=== PATIENT | male | born 1935 | race Caucasian/White ===

== ENCOUNTER 2023-03-15 09:25 | Inpatient (IN) | payer MEDICARE, BC ==
[~2023-03-15] VITALS: Ht 160 cm; Wt 62.6 kg
[2023-03-15] MEDS ORDERED: ONDANSETRON 4 MG/2 ML VIAL IV ONE (09:30)
[2023-03-15] MEDS ORDERED: IV NORMAL SALINE 500 ML BAG IV ONE (09:30)
--- NOTE | 2023-03-15 09:30 | NUR ---
Pt states he doesn't take any medication and only takes vitamins.
--- NOTE | 2023-03-15 09:30 | NUR ---
BIB paramedics. pt. covered in bloody diarrhea and vomit changed into gown, VSS IV site insertion on L and R arm. EKG and covid swab collected sent to lab
[2023-03-15] MEDS ORDERED: ONDANSETRON 4 MG/2 ML VIAL ONE (09:45)
--- NOTE | 2023-03-15 10:07 | NUR ---
CT in process
[2023-03-15 10:09] LABS: HEMATOCRIT 33.1 % (36.7-47.1); MEAN CORPUSCULAR HEMOGLOBIN 30.6 uug (23.8-33.4); MEAN CORPUSCULAR VOLUME 92.9 fL (73.0-96.2); PLATELET COUNT (AUTO) 246 K/uL (152-348)
[2023-03-15 10:29] LABS: ALANINE AMINOTRANSFERASE 24 U/L (16-63); ALKALINE PHOSPHATASE 89 U/L (50-136); ASPARTATE AMINOTRANSFERASE 16 U/L (15-37); BILIRUBIN,DIRECT 0.2 mg/dL (0.0-0.2); BILIRUBIN,TOTAL 0.7 mg/dL (0.2-1.0); CARBON DIOXIDE 27 mmol/L (21-32); CHLORIDE 104 mmol/L (98-107); CREATININE 1.2 mg/dL (0.6-1.3); GLUCOSE 205 mg/dL (74-106); LIPASE 123 U/L (73-393); POTASSIUM 4.6 mmol/L (3.5-5.1); TOTAL PROTEIN, SERUM 6.6 g/dL (6.4-8.2); UREA NITROGEN, BLOOD 27 mg/dL (7-18)
[2023-03-15] MEDS ORDERED: PIPERACILLIN SODIUM/TAZOBACTAM 3.375 G in IV DEXTROSE 5% 50 ML IV ONE (11:30)
--- NOTE | 2023-03-15 11:32 | NUR ---
call panel awaiting for Dr. Mathur call back
[2023-03-15] MEDS ORDERED: PIPERACILLIN/TAZOBACTAM/D5W 50 ML IV ONE (11:38)
[2023-03-15] MEDS ORDERED: REMEDY ESSENTIAL ZINC PASTE 113 GM TP PRN (12:30)
[2023-03-15] MEDS ORDERED: MAGNESIUM HYDROXIDE 30 ML LIQUID UDC PO PRN (12:30)
[2023-03-15] MEDS ORDERED: ONDANSETRON 4 MG/2 ML VIAL IV PRN (12:30)
[2023-03-15] MEDS ORDERED: ACETAMINOPHEN 325 MG TABLET PO PRN (12:30)
--- NOTE | 2023-03-15 12:30 | NUR ---
Pt. admitted from ER and received report from ER nurse. Pt. is alert and oriented x4. Able to ambulate. Admitted for GI bleeding. Skin is clean and intact. Call light within reach. Normal breathing and no SOB noted. No c/o pain. Compliance with the care given. Will keep monitoring the patient.
--- NOTE | 2023-03-15 12:33 | NUR ---
urine collected and sent to lab
[2023-03-15 12:47] LABS: *BILIRUBIN,URIN NEGATIVE (NEGATIVE); *BLOOD, URINE 1+ (NEGATIVE); *CLARITY,URINE CLEAR (CLEAR); *COLOR,URINE YELLOW (YELLOW); *KETONES,URINE NEGATIVE (NEGATIVE); *UROBILINOGEN,URINE 0.2 E.U./dl (NORMAL); LEUKOCYTE ESTERASE ,URINE NEGATIVE (NEGATIVE); NITRITE, URINE NEGATIVE (NEGATIVE); UGLUCOSE NEGATIVE (NEGATIVE)
[2023-03-15 13:15] LABS: HEMATOCRIT 34.2 % (36.7-47.1)
[2023-03-15 13:20] LABS: BACTERIA,URINE 0 /HPF (NONE SEEN); CALCIUM CARBONATE CRYSTALS,UR NONE SEEN /HPF (NONE SEEN); CALCIUM OXALATE CRYSTALS,UR NONE SEEN /HPF (NONE SEEN); CALCIUM PHOSPHATE CRYSTALS,UR NONE SEEN /HPF (NONE SEEN); COARSE GRANULAR CASTS,URINE NONE SEEN /LPF; CYSTINE CRYSTALS,URINE NONE SEEN /HPF (NONE SEEN); FATTY CASTS,URINE NONE SEEN /LPF (NONE SEEN); MUCUS,URINE NONE SEEN /LPF (0-FEW); RBC,URINE 0-3 /HPF (0-3); RED BLOOD CELL CASTS,URINE NONE SEEN /LPF (NONE SEEN); SPERM,URINE NONE SEEN /HPF (NONE SEEN); SQUAMOUS EPITHELIAL CELL,UR NONE SEEN /HPF (NONE SEEN); TRICHOMONAS,URINE NONE SEEN /HPF (NONE SEEN); TRIPLE PHOSPHATE CRYSTAL,UR NONE SEEN /HPF (NONE SEEN); TYROSINE CRYSTAL,URINE NONE SEEN /HPF (NONE SEEN); URIC ACID CRYSTALS,URINE NONE SEEN /HPF (NONE SEEN); URINE AMORPHOUS PHOSPHATES NONE SEEN /HPF; URINE AMORPHOUS URATE NONE SEEN /HPF; WAXY CASTS,URINE NONE SEEN /LPF (NONE SEEN); WBC,URINE 0-3 /HPF (0-3); YEAST,URINE NONE SEEN /HPF (NONE SEEN)
[2023-03-15 13:47] VITALS: BP 113/54
[2023-03-15] MEDS ORDERED: PIPERACILLIN SODIUM/TAZOBACTAM 3.375 G in IV DEXTROSE 5% 50 ML IV SCH (14:00)
[2023-03-15] MEDS: IV D5 1/2 NS 1000 ML 1,000 ML IV PRN ×2 (14:40→23:03)
[2023-03-15 16:00] VITALS: BP 108/53
--- NOTE | 2023-03-15 17:45 | NUR ---
Pt. has been stable during the shift. No c/o pain. Call light within reach. No more rectal bleeding noted. Compliance with the care given. at the bed side. Kept the pt. on NPO. Will keep monitoring the patient.
--- NOTE | 2023-03-15 18:08 | NUR ---
Followed up with Dr. Francisco about if we still need to keep the pt. NPO and was is the plan. She responded that we still need to keep the pt. NPO and she called Dr. Ndiaye to see the patient.
--- NOTE | 2023-03-15 19:00 | NUR ---
received in bed awake call light with in reach vs are stable
--- NOTE | 2023-03-15 20:00 | NUR ---
pt seen by dr burnett
[2023-03-15 20:19] VITALS: BP 117/53
[2023-03-15] MEDS: PIPERACILLIN SODIUM/TAZOBACTAM 3.375 G in IV DEXTROSE 5% 100 ML IV SCH (20:30)
[2023-03-16 00:51] VITALS: BP 113/53
[2023-03-16] MEDS: PIPERACILLIN SODIUM/TAZOBACTAM 3.375 G in IV DEXTROSE 5% 100 ML IV SCH ×3 (03:00→20:44)
--- NOTE | 2023-03-16 04:36 | NUR ---
Pt. has been stable during the shift. No c/o pain. Call light within reach. Compliance with the care given. at the bed side. Will keep monitoring the patient.
[2023-03-16 05:06] VITALS: BP 109/51
[2023-03-16 06:18] LABS: HEMATOCRIT 28.2 % (36.7-47.1); MEAN CORPUSCULAR HEMOGLOBIN 31.5 uug (23.8-33.4); MEAN CORPUSCULAR VOLUME 92.4 fL (73.0-96.2); PLATELET COUNT (AUTO) 204 K/uL (152-348)
[2023-03-16 06:34] LABS: PHOSPHOROUS 3.7 mg/dL (2.5-4.9); POTASSIUM 3.9 mmol/L (3.5-5.1)
[2023-03-16] MEDS: PANTOPRAZOLE SODIUM 40 MG VIAL IV SCH (08:07)
[2023-03-16 12:00] VITALS: BP 114/58
[2023-03-16 13:39] LABS: HEMATOCRIT 27.7 % (36.7-47.1)
[2023-03-16 16:00] VITALS: BP 91/56
[2023-03-16] MEDS: IV D5 1/2 NS 1000 ML 1,000 ML IV PRN (16:21)
--- NOTE | 2023-03-16 18:02 | NUR ---
Pt. has been stable during the shift. Pt. is alert and oriented x4. No c/o pain. Call light within reach. Able to ambulate. Just waiting for Dr. Ndiaye to see the patient due to GI bleeding. Noted pt. having an episode of rectal bleeding and it was reported to Dr. Francisco. Pt. is on NPO. Call light within reach. Compliance with the care give. Will keep monitoring the patient.
[2023-03-16 20:00] VITALS: BP 135/60
[2023-03-17] VITALS: BP 117/75
[2023-03-17] MEDS: IV D5 1/2 NS 1000 ML 1,000 ML IV PRN (00:48)
[2023-03-17 04:00] VITALS: BP 117/58
[2023-03-17] MEDS: PIPERACILLIN SODIUM/TAZOBACTAM 3.375 G in IV DEXTROSE 5% 100 ML IV SCH ×3 (04:22→20:00)
[2023-03-17 07:16] LABS: HEMATOCRIT 28.7 % (36.7-47.1); MEAN CORPUSCULAR HEMOGLOBIN 31.8 uug (23.8-33.4); MEAN CORPUSCULAR VOLUME 92.5 fL (73.0-96.2); PLATELET COUNT (AUTO) 218 K/uL (152-348)
[2023-03-17 07:28] LABS: CARBON DIOXIDE 28 mmol/L (21-32); CHLORIDE 107 mmol/L (98-107); CREATININE 1.1 mg/dL (0.6-1.3); GLUCOSE 113 mg/dL (74-106); MAGNESIUM 2.1 mg/dL (1.8-2.4); PHOSPHOROUS 3.2 mg/dL (2.5-4.9); POTASSIUM 3.6 mmol/L (3.5-5.1); UREA NITROGEN, BLOOD 13 mg/dL (7-18)
[2023-03-17] MEDS: PANTOPRAZOLE SODIUM 40 MG VIAL IV SCH (09:06)
[2023-03-17] MEDS ORDERED: GOLYTELY 4000 ML BOTTLE PO ONE (11:00)
[2023-03-17 11:03] LABS: HEMATOCRIT 28.7 % (36.7-47.1)
[2023-03-17 12:00] VITALS: BP 131/57
[2023-03-17 16:00] VITALS: BP 129/62
--- NOTE | 2023-03-17 17:04 | NUR ---
Pt. has been stable during the shift. Dr. Ndiaye was notified about the result for Nuclear medicine GI bleeding and no new order received. Pt. is alert and oriented x4. Able to walk. Continued the clear liquid diet during shift. Obtained consent for Colonoscopy. Notified the pt. that he has to be NPO after midnight and will endorse to next shift. For bowel prep due to colonoscopy in the morning encouraged the pt. to drink the Golytely as it was ordered. Noted family at the pt.'s bed side at all time. Will keep monitoring the patient
[2023-03-17 18:45] LABS: HEMATOCRIT 29.9 % (36.7-47.1)
[2023-03-17 20:00] VITALS: BP 107/54
[2023-03-18 02:40] LABS: HEMATOCRIT 31.3 % (36.7-47.1)
[2023-03-18] MEDS: PIPERACILLIN SODIUM/TAZOBACTAM 3.375 G in IV DEXTROSE 5% 100 ML IV SCH ×2 (04:12→10:46)
[2023-03-18 05:39] VITALS: BP 119/55
--- NOTE | 2023-03-18 07:00 | NUR ---
PATIENT SITING AT BEDSIDE AWAKE ALERT AND ORIENTED X3, NO SS OF PAIN OR DISTRESS KEPT NPO FOR COLONOSCOPY
[2023-03-18 07:16] LABS: MEAN CORPUSCULAR HEMOGLOBIN 31.5 uug (23.8-33.4); MEAN CORPUSCULAR VOLUME 92.3 fL (73.0-96.2); PLATELET COUNT (AUTO) 222 K/uL (152-348)
[2023-03-18 07:38] LABS: CARBON DIOXIDE 27 mmol/L (21-32); CHLORIDE 108 mmol/L (98-107); GLUCOSE 117 mg/dL (74-106); MAGNESIUM 1.9 mg/dL (1.8-2.4); PHOSPHOROUS 3.1 mg/dL (2.5-4.9); POTASSIUM 3.3 mmol/L (3.5-5.1); UREA NITROGEN, BLOOD 5 mg/dL (7-18)
[2023-03-18] MEDS: PANTOPRAZOLE SODIUM 40 MG VIAL IV SCH (07:57)
--- NOTE | 2023-03-18 08:30 | NUR ---
PATIENT WENT TO OR VIA BED ACCOMPANIED BY STAFF, CONSENT SIGNED
[2023-03-18] MEDS ORDERED: POTASSIUM CHLORIDE 20 MEQ POWDER PACKET PO ONE (09:00)
[2023-03-18] MEDS ORDERED: PROPOFOL 200 MG/20 ML BOTTLE ONE (09:01)
[2023-03-18] MEDS ORDERED: LIDOCAINE-MPF 2% 5 ML VIAL ONE (09:01)
--- NOTE | 2023-03-18 10:40 | NUR ---
BACK FROM OR AWAKE ALERT NO SIGNS OF SOB OR C/O PAIN. IVF RESUMED AND WILL START REGULAR DIET ORDERED BY GI
[2023-03-18] MEDS: IV D5 1/2 NS 1000 ML 1,000 ML IV PRN (10:45)
[2023-03-18 11:10] LABS: HEMATOCRIT 28.7 % (36.7-47.1)
[2023-03-18 11:35] VITALS: BP 121/63
--- NOTE | 2023-03-18 13:00 | NUR ---
PATIENT REMAINS STABLE TOLERATING REGULAR DIET, UP AND ABOUT TO THE BATHROOM. DR BRIDGES NOTIFIED REGARDING WANTING TO TAKE PATIENT FAUZIA TODAY. ORDERS GIVEN.
[2023-03-18] MEDS ORDERED: PANT40TA2 PO (13:17)
--- NOTE | 2023-03-18 13:51 | NUR ---
DISCHARGE MEDICATION AND FOLLOW-UP INSTRUCTION GIVEN TO PATIENT AND FAMILY
--- NOTE | 2023-03-18 14:19 | NUR ---
DISCHARGED HOME ACCOMPANIED BY FAMILY
== END 2023-03-18 14:15 | disposition home or self-care (01) | DRG 394 ==
LOC: ER 09:25 → TELE3 12:27
PROVIDERS: ADMIT Student in an Organized Health Care Education/Training Program; ATTEND Student in an Organized Health Care Education/Training Program
PROC: 0DBB8ZX Excision of Ileum, Via Natural or Artificial Opening Endoscopic, Diagnostic (ICD-10-PCS; principal; 2023-03-18)
DX: K64.8 Other hemorrhoids (principal); D62 Acute posthemorrhagic anemia; K63.3 Ulcer of intestine; E44.1 Mild protein-calorie malnutrition; I31.39 Other pericardial effusion (noninflammatory); E86.0 Dehydration; K57.30 Diverticulosis of large intestine without perforation or abscess without bleeding; Z20.822 Contact with and (suspected) exposure to COVID-19; K40.90 Unilateral inguinal hernia, without obstruction or gangrene, not specified as recurrent; N40.0 Benign prostatic hyperplasia without lower urinary tract symptoms; D72.829 Elevated white blood cell count, unspecified; R55 Syncope and collapse; K83.8 Other specified diseases of biliary tract; K43.9 Ventral hernia without obstruction or gangrene
CPT/HCPCS: 36415; 71045; 78278; 83605; 83690; 83735; 84100; 84484; 85018; 85025; 85730; 86850; 86900; 86901; 87040; 93005; A9560; C9113; G0378; J2405; J2543; J3490; J7040